=== PATIENT | female | born 1980 | race Caucasian/White ===

== ENCOUNTER 2020-03-12 11:46 | Emergency (ER) | payer MEDICAID, OTHER ==
[~2020-03-12] VITALS: Ht 170.2 cm; Wt 140.0 kg
[2020-03-12] MEDS ORDERED: MORPHINE SULFATE 4 MG/ML, 1ML IVPush PRN (12:00)
[2020-03-12] MEDS ORDERED: SODIUM CHLORIDE FLUSH 10ML SYR IVF ONE (12:00)
[2020-03-12] MEDS ORDERED: ONDANSETRON 2MG/ML, 2ML IVPush ONE (12:00)
[2020-03-12] MEDS ORDERED: MORPHINE SULFATE 4 MG/ML, 1ML ONE (12:11)
[2020-03-12] MEDS ORDERED: ONDANSETRON 2MG/ML, 2ML ONE (12:11)
[2020-03-12 12:13] LABS: BASOPHILS % (AUTO) 2 % (0-1); EOSINOPHILS # (AUTO) 0.18 x10^3/uL (0-0.4); EOSINOPHILS % (AUTO) 3 % (1-7); LYMPHOCYTES % (AUTO) 39 % (22-44); MD NO; MEAN CORPUSCULAR HEMOGLOBIN 25.8 pg (27.0-34.8); MEAN CORPUSCULAR HGB CONC 32.4 g/dL (32.4-35.8); MEAN CORPUSCULAR VOLUME 79.5 fL (80-100); MEAN PLATELET VOLUME 8.1 fL (7.4-10.4); MONOCYTES # (AUTO) 0.53 x10^3/uL (0.2-0.8); MONOCYTES % (AUTO) 8 % (2-9); NEUTROPHILS # (AUTO) 3.19 x10^3/uL (1.8-6.8); NEUTROPHILS % (AUTO) 49 % (42-75); PLATELET COUNT 295 x10^3/uL (130-400); RED BLOOD COUNT 4.76 x10^6/uL (3.82-5.3)
[2020-03-12 12:25] LABS: ALANINE AMINOTRANSFERASE 26 U/L (12-78); ALBUMIN 3.5 g/dL (3.4-5.0); ANION GAP 7 mmol/L (5-15); CALCIUM 9.1 mg/dL (8.5-10.1); CHLORIDE 108 mmol/L (98-107); CREATININE 0.93 mg/dL (0.55-1.02)
[2020-03-12 12:30] LABS: ALKALINE PHOSPHATASE 88 U/L (45-117); BILIRUBIN,TOTAL 0.3 mg/dL (0.2-1.0)
[2020-03-12] MEDS ORDERED: PLEASE ENTER ALLERGIES MC SCH (12:30)
--- NOTE | 2020-03-12 12:33 | NUR ---
PT BIB EMS FOR LOWER BACK PAIN. PT WAS LIFTING AND BENDING OVER THIS AM STRAINED HER BACK. PT DENIES CP, COUGH OR SOB. PT HAS NOT TRAUMA OR DEFORMIT. DENIES N/V/D. MEDICATED PER ORDERS.
--- NOTE | 2020-03-12 12:41 | NUR ---
MEDICATED PER ORDERS, IV STARTED. GIVEN BLANKET
--- NOTE | 2020-03-12 12:44 | NUR ---
PT AMBULATED TO BATHROOM FOR UA
[2020-03-12] MEDS ORDERED: LIDODERM 5% PATCH TD ONE ×2 (12:46→13:00)
[2020-03-12 13:01] LABS: MICROSCOPIC INDICATED
[2020-03-12 13:31] VITALS: BP 114/45
--- NOTE | 2020-03-12 13:32 | NUR ---
BREAK RN: PT RESTING ON RICARDO. SOHAN. VSS. WARMBLANKET PROVIDED. PT CHART REVIEWED AND PLACED FOR RECHECK.
--- NOTE | 2020-03-12 13:59 | NUR ---
Patient/Caregiver given discharge instructions and they have confirmed that they understand the instructions. Patient ambulatory with steady gait.
== END 2020-03-12 14:08 | disposition home or self-care (01) ==
LOC: ED 13:01
DX: S39.012A Strain of muscle, fascia and tendon of lower back, initial encounter (principal); G89.11 Acute pain due to trauma; R10.32 Left lower quadrant pain; X58.XXXA Exposure to other specified factors, initial encounter; Y93.89 Activity, other specified; Y92.89 Other specified places as the place of occurrence of the external cause; Y99.8 Other external cause status
CPT/HCPCS: 36415; 80053; 81001; 83690; 84703; 85025; 87086; 96374; 96375; 99284; J2270; J2405